=== PATIENT | female | born 1945 | race Asian ===

== ENCOUNTER 2025-10-24 16:17 | Outpatient (CLI) | payer MEDICARE | END 2025-10-24 16:18 | disposition home or self-care (01) | LOC: BICRAD 16:17 | PROVIDERS: ATTEND Family Medicine | DX: Z04.3 Encounter for examination and observation following other accident (principal); W19.XXXA Unspecified fall, initial encounter; M47.816 Spondylosis without myelopathy or radiculopathy, lumbar region; M43.9 Deforming dorsopathy, unspecified | CPT/HCPCS: 72100 ==

== ENCOUNTER 2025-10-30 08:36 | Outpatient (CLI) | payer MEDICARE | END 2025-10-30 08:37 | disposition home or self-care (01) | LOC: CT 08:36 | PROVIDERS: ATTEND Family Medicine | DX: S32.030A Wedge compression fracture of third lumbar vertebra, initial encounter for closed fracture (principal); M47.816 Spondylosis without myelopathy or radiculopathy, lumbar region; M43.16 Spondylolisthesis, lumbar region | CPT/HCPCS: 72131 ==

== ENCOUNTER 2025-10-30 09:22 | Outpatient (CLI) | payer MEDICARE | END 2025-10-30 09:23 | disposition home or self-care (01) | LOC: BICMAMMO 09:22 | PROVIDERS: ATTEND Family Medicine | DX: Z13.820 Encounter for screening for osteoporosis (principal); Z78.0 Asymptomatic menopausal state; M85.851 Other specified disorders of bone density and structure, right thigh; M85.852 Other specified disorders of bone density and structure, left thigh | CPT/HCPCS: 77080 ==